=== PATIENT | female | born 1985 | race Hispanic/Latino ===

== ENCOUNTER 2020-12-25 05:45 | Inpatient (IN) | payer OTHER, MEDICAID ==
[~2020-12-25] VITALS: Ht 169.5 cm; Wt 115.7 kg
[2020-12-25] MEDS ORDERED: CALDOLOR 800MG+NS 250ML 250 ML IV PRN (06:00)
[2020-12-25] MEDS ORDERED: CEFAZOLIN SODIUM 1 GM VIAL IVP PRN (06:00)
[2020-12-25] MEDS ORDERED: LACTATED RINGERS 1000ML 1,000 ML IV SCH (06:00)
[2020-12-25 06:50] LABS: HEMATOCRIT 34.3 % (36-48); MEAN CORPUSCULAR HEMOGLOBIN 28.4 pg (27.0-33.0); MEAN CORPUSCULAR HGB CONC 33.2 g/dL (32.0-36.0); MEAN CORPUSCULAR VOLUME 85.5 fL (79-99); RED BLOOD CELL COUNT(AUTO) 4.01 MIL/uL (4.00-5.50); RED CELL DISTRIBUTION WIDTH 14.6 % (11.0-15.5); WHITE BLOOD COUNT (AUTO) 8.6 K/uL (4.8-10.8)
[2020-12-25 07:21] VITALS: BP 111/62
[2020-12-25] MEDS ORDERED: MORPHINE PF 100MG/10ML AMP IV ONE (09:16)
[2020-12-25] MEDS ORDERED: CITRIC ACID/SODIUM CITRATE 30 ML UDCUP ONE (09:20)
[2020-12-25] MEDS ORDERED: CEFAZOLIN SODIUM 1 GM VIAL IVP ONE (09:39)
[2020-12-25] MEDS ORDERED: PROMETHAZINE HCL 25 MG/ML 1ML AMPULE IM PRN (09:45)
[2020-12-25] MEDS ORDERED: SIMETHICONE 80 MG TAB.CHEW PO PRN (09:45)
[2020-12-25] MEDS ORDERED: LANOLIN 30GM OINTMENT TP PRN (09:45)
[2020-12-25] MEDS ORDERED: 0.9%NACL 10ML VIAL IVP PRN (09:45)
[2020-12-25] MEDS ORDERED: OXYTOCIN-LR 20 UNITS/1000 ML 1,000 ML IV PRN (09:45)
[2020-12-25] MEDS ORDERED: HYDROCODONE/ACETAMINOPHEN 5/325 MG TAB PO PRN (09:45)
[2020-12-25] MEDS ORDERED: ACETAMINOPHEN 500 MG TABLET PO PRN (09:45)
[2020-12-25] MEDS ORDERED: DIPHENHYDRAMINE HCL 25 MG CAPSULE PO PRN (09:45)
[2020-12-25] MEDS ORDERED: ACETAMINOPHEN WITH CODEINE 1 TAB TAB PO PRN (09:45)
[2020-12-25] MEDS ORDERED: MEPERIDINE-PF 75 MG/ML SYG IM PRN (09:45)
[2020-12-25] MEDS ORDERED: DEXTROSE 5 %-0.45 % NACL 1,000 ML IV PRN (09:45)
[2020-12-25] MEDS ORDERED: BISACODYL 10 MG SUPP.RECT RC PRN (09:45)
[2020-12-25] MEDS ORDERED: FENTANYL CITRATE PF 50 MCG/1 ML 2ML VIAL ONE (09:55)
[2020-12-25] MEDS ORDERED: PROPOFOL 10 MG/ML 20ML VIAL IV ONE (09:59)
[2020-12-25] MEDS ORDERED: OXYTOCIN 10 USP UNITS/ML ONE (10:08)
[2020-12-25] MEDS ORDERED: ONDANSETRON 4MG INJ ONE (10:11)
[2020-12-25] MEDS ORDERED: ONDANSETRON 4MG INJ IVP PRN (11:30)
[2020-12-25] MEDS ORDERED: LORATADINE 10 MG TABLET PO PRN (11:30)
[2020-12-25] MEDS ORDERED: NALOXONE HCL 0.4 MG/1 ML ML IVP PRN (11:30)
[2020-12-25] MEDS ORDERED: DiphenhydrAMINE HCL 50 MG/ML VIAL IVP PRN (11:30)
[2020-12-25] MEDS ORDERED: EPHEDRINE SULFATE 50 MG/ML AMPULE IVP PRN (11:30)
[2020-12-25] MEDS: CLINDAMYCIN IVPB 900MG/50ML 50 ML IV SCH ×2 (13:50→22:04)
[2020-12-25 15:06] VITALS: BP 100/46
[2020-12-25] MEDS ORDERED: PREN1TAB80 PO (15:26)
[2020-12-25] MEDS ORDERED: AEC81 PO (15:26)
[2020-12-25 16:17] VITALS: BP 92/46
[2020-12-25] MEDS: CALDOLOR 800MG+NS 250ML 250 ML IV SCH (18:24)
[2020-12-25 19:30] VITALS: BP 103/55
[2020-12-25] MEDS: DOCUSATE SODIUM 100 MG CAP PO SCH (21:15)
[2020-12-25 23:15] VITALS: BP 101/50
[2020-12-26] MEDS: CALDOLOR 800MG+NS 250ML 250 ML IV SCH (02:05)
[2020-12-26 03:09] VITALS: BP 89/44
[2020-12-26 04:10] VITALS: BP 100/54
[2020-12-26] MEDS: CLINDAMYCIN IVPB 900MG/50ML 50 ML IV SCH ×2 (05:56→14:17)
[2020-12-26 07:30] VITALS: BP 105/58
[2020-12-26 08:15] LABS: HEPATITIS Bs ANTIGEN SCREEN P Negative (Negative)
[2020-12-26] MEDS ORDERED: LIDOCAINE 5% TOPICAL PATCH TP SCH (09:00)
[2020-12-26] MEDS: DOCUSATE SODIUM 100 MG CAP PO SCH (09:05)
[2020-12-26] MEDS: IBUPROFEN 800 MG TAB PO SCH ×3 (09:05→18:26)
[2020-12-26 11:04] VITALS: BP 136/72
[2020-12-26 16:19] VITALS: BP 115/63
== END 2020-12-26 18:50 | disposition home or self-care (01) | DRG 788 ==
LOC: LDH 05:45 → WSH 15:00
PROVIDERS: ADMIT Obstetrics & Gynecology; ATTEND Obstetrics & Gynecology
PROC: 10D00Z1 Extraction of Products of Conception, Low, Open Approach (ICD-10-PCS; principal; 2020-12-25 09:00)
DX: O32.1XX0 Maternal care for breech presentation, not applicable or unspecified (principal); O34.211 Maternal care for low transverse scar from previous cesarean delivery; Z3A.38 38 weeks gestation of pregnancy; Z37.0 Single live birth; O99.214 Obesity complicating childbirth; E66.01 Morbid (severe) obesity due to excess calories; Z20.822 Contact with and (suspected) exposure to COVID-19
CPT/HCPCS: 36415; 59510; 85027; 86592; 86850; 86900; 86901; 87340; 87635; A4344; G0378; J0690; J1741; J2274; J2405; J2590; J2704; J3010; J3490; J7120